=== PATIENT | male | born 1965 | race Caucasian/White ===

== ENCOUNTER 2022-01-09 10:52 | Emergency (ER) | payer OTHER ==
--- OUTSIDE RECORDS SUMMARY | 2022-01-09 10:54 | XMS REPORT | Continuity of Care Document ---
:1965 Author Organization [facility] t Address [address] [place] [address] Care Team Providers Name Role Phone ACRES Attending Clinician Unavailable MD LEWIS PEREZ Attending Clinician Unavailable ACRES Admitting Clinician Unavailable MD LEWIS PEREZ Admitting Clinician Unavailable Problems This patient has no known problems. Allergies, Adverse Reactions, Alerts This patient has no known allergies or adverse reactions. Medications This patient has no known medications. Immunizations Ordered Immunization Filled Immunization Date Status Commen ts Source Name Name Pfizer COVID-19 Vaccine Pfizer COVID-19 2021-10-08 Completed Vaccine 00:00:00 Pfizer COVID-19 Vaccine Pfizer COVID-19 2021-02-22 Completed Vaccine 00:00:00 Procedures This patient has no known procedures. Encounters Start End Encounter Admission Attending Care Care Encounter Source Date/Time Date/Time Type Type Clinicians Facility Department ID 2021-10-08 2021-10-08 Outpatient [facility] [id number] [facility] 00:00:00 00:00:00 V 2021-02-22 2021-02-22 Outpatient [facility] [id number] [facility] 00:00:00 00:00:00 V 2020-09-20 2020-09-21 Outpatient DAPHNEY PEREZ [facility] [id number] [place] 00:00:00 00:00:[address] 2019-12-30 2019-12-31 Inpatient DAPHNEY PEREZ [facility] [id number] [place] 00:00:00 00:00:[address] Results Test Description Test Time Test Comments Results Result Comments Source SARS-CoV-2 (COVID-19) RNA [Presence] in Respiratory sp ecimen by 2020-09-21 15:41:06 JOSUE with probe detection Test Item Value Reference Range Interpretation Comme nts SARS-CoV-2 (COVID-19) RNA [Presence] in Respiratory Not detected No t-Detected specimen by JOSUE with probe detection (test code = 06259-6)
[2022-01-09] MEDS ORDERED: HYDROCODONE/APAP 10/325 TAB ONE (11:59)
[2022-01-09] MEDS ORDERED: ONDANSETRON 4 MG (ODT) TAB ONE (11:59)
[2022-01-09] MEDS ORDERED: LIDOCAINE 4% PATCH ONE (12:50)
[2022-01-09] MEDS ORDERED: KETOROLAC 30 MG/ML INJ ONE (12:50)
--- NOTE | 2022-01-09 13:31 | EDPHYS ---
Physician Documentation [facility] Name: Abelino Chance Age: 56 yrs Sex: Male : 1965 Arrival Date: 01/09/2022 Time: 10:57 Bed 10 Private MD: CHARISSA Physician Claudio Chirinos HPI: 01/09 11:58 This 56 yrs old Male presents to ER via Ambulatory with complaints of Neck Pain. pm1 11:58 The patient or guardian complains of pain, that is acute. The symptoms are located on pm1 the left side of neck. Onset: The symptoms/episode began/occurred today. Context: The problem was sustained at home, The neck injury/problem resulted from Possibly from old pillow with side-lying sleeping position. Associated signs and symptoms: The patient has no apparent associated signs or symptoms. The pain does not radiate. Modifying factors: The symptoms are alleviated by nothing. the symptoms are aggravated by movement. Severity of symptoms: in the emergency department the symptoms are actually worse. The patient has experienced similar episodes in the past, a few times. The patient has not recently seen a physician. Historical: - Allergies: 11:09 Quinidine-Quinine Analogues; ab2 11:09 Digoxin; ab2 - PMHx: 11:09 Cervical Stenosis; ab2 - PSHx: 11:09 Cardiac Stents; ab2 - Immunization history:: Adult Immunizations up to date, Client reports receiving the 2nd dose of the Covid vaccine. - Social history:: Smoking status: Patient reports the use of cigarette tobacco products, Patient denies any tobacco usage or history of. Patient uses street drugs, marijuana. ROS: 11:58 Constitutional: Negative for fever, chills, and weight loss. pm1 11:58 Cardiovascular: Negative for chest pain, palpitations, and edema, Respiratory: Negative for shortness of breath, cough, wheezing, and pleuritic chest pain, Back: Negative for injury and pain, MS/Extremity: Negative for injury and deformity, Skin: Negative for injury, rash, and discoloration, Neuro: Negative for headache, weakness, numbness, tingling, and seizure. 11:58 Neck: Positive for pain with movement, of the left side of neck. 11:58 All other systems are negative. Exam: 11:58 Constitutional: This is a well developed, well nourished patient who is awake, alert, pm1 and in no acute distress. Head/Face: Normocephalic, atraumatic. 11:58 Back: No spinal tenderness. No costovertebral tenderness. Full range of motion. Skin: Warm, dry with normal turgor. Normal color with no rashes, no lesions, and no evidence of cellulitis. MS/ Extremity: Pulses equal, no cyanosis. Neurovascular intact. Full, normal range of motion. 11:58 Eyes: Exam is negative for acute changes, Periorbital structures: appear normal, no acute changes, Pupils: no acute changes, Extraocular movements: no acute changes. 11:58 ENT: Exam is negative for acute changes, Mouth: no acute changes, Lips: normal, moist, Oral mucosa: normal, pink and intact, moist. 11:58 Neck: External neck: tenderness, that is moderate, of the left trapezius, C-spine: vertebral tenderness, is not appreciated. 11:58 Cardiovascular: Exam negative for acute changes, Rate: normal, Rhythm: regular, Pulses: no pulse deficits are appreciated. 11:58 Respiratory: Exam negative for acute changes, respiratory distress, shortness of breath. 11:58 Neuro: Exam negative for acute changes, Orientation: is normal, Mentation: is normal, Motor: is normal, moves all fours. Vital Signs: 11:07 BP 128 / 86; Pulse 67; Resp 18; Temp 98.0(O); Pulse Ox 98% on R/A; Weight 127.01 kg; ab2 Height 6 ft. 4 in. (193.04 cm); Pain 7/10; 13:17 BP 121 / 77; Pulse 64; Resp 18; Pulse Ox 99% on R/A; ab2 13:44 BP 118 / 49; Pulse 58; Resp 18; ww 11:07 Body Mass Index 34.08 (127.01 kg, 193.04 cm) ab2 MDM: 11:24 Patient medically screened. [facility] 13:29 Data reviewed: vital signs. Data interpreted: Pulse oximetry: on room air is 99 %. pm1 Interpretation: normal. Counseling: I had a detailed discussion with the patient and/or guardian regarding: the historical points, exam findings, and any diagnostic results supporting the discharge/admit diagnosis, the need for outpatient follow up, to return to the emergency department if symptoms worsen or persist or if there are any questions or concerns that arise at home. Administered Medications: 11:58 Drug: [place] (HYDROcodone-acetaminophen) 10 mg-325 mg 1 tabs Route: PO; ab2 13:16 Follow up: Response: No adverse reaction; Pain is decreased ab2 11:58 Drug: Ondansetron 4 mg Route: PO; ab2 13:16 Follow up: Response: No adverse reaction ab2 12:51 Drug: Ketorolac 60 mg Route: IM; Site: left ventrogluteal; ab2 13:16 Follow up: Response: No adverse reaction; Pain is decreased ab2 12:51 Drug: Lidoderm Patch 5 % (700 mg/patch) 1 patches Route: Topical; Site: affected area; ab2 13:16 Follow up: Response: No adverse reaction; Pain is decreased ab2 Disposition: 18:30 Co-signature as Attending Physician, Claudio Chirinos MD I agree with the assessment and [place] plan of care. Disposition Summary: 01/09/22 13:30 Discharge Ordered Location: Home pm1 Problem: new pm1 Symptoms: have improved pm1 Condition: Stable pm1 Diagnosis - Strain of muscle, fascia and tendon at neck level pm1 Followup: pm1 - With: Emergency Department - When: As needed - Reason: Worsening of condition Followup: pm1 - With: Private Physician - When: 2 - 3 days - Reason: Recheck today's complaints, Continuance of care, Re-evaluation by your physician Discharge Instructions: - Discharge Summary Sheet pm1 - Muscle Strain pm1 Forms: - Medication Reconciliation Form pm1 - Thank You Letter pm1 - Antibiotic Education pm1 - Prescription Opioid Use pm1 Prescriptions: - Lidoderm 5 % Topical adhesive patch,medicated - apply 1 patch by TRANSDERMAL route once daily As needed 12 hours on and 12 pm1 hours off in a 24 hour period; 10 patch; Refills: 0, Product Selection Permitted - Cyclobenzaprine 10 mg Oral Tablet - take 1 tablet by ORAL route every 8 hours As needed; 30 tablet; Refills: 0, pm1 Product Selection Permitted - Tylenol-Codeine #3 300 mg-30 mg Oral - take 2 tablet by ORAL route every 4-6 hours As needed; 20 tablet; Refills: 0, pm1 Product Selection Permitted Signatures: Claudio Chirinos MD MD cha Marinas, Patrick, NP LABORER OPERATOR pm1 Bleininger, Asher ab2
--- NOTE | 2022-01-09 13:31 | ER ---
Nurse's Notes [facility] Name: Abelino Chance Age: 56 yrs Sex: Male : 1965 Arrival Date: 01/09/2022 Time: 10:57 Bed 10 Private MD: Diagnosis: Strain of muscle, fascia and tendon at neck level Presentation: 01/09 11:07 Chief complaint: Patient states: "I have this horrible pain on the left side of my ab2 neck. Last chris this happened they gave me Toradol and it helped greatly." Pt denies any injury or trauma to area. Coronavirus screen: Vaccine status: Patient reports receiving the 2nd dose of the covid vaccine. Client denies travel out of the [place] in the last 14 days. At this time, the client does not indicate any symptoms associated with coronavirus-19. Ebola Screen: Patient negative for fever greater than or equal to 101.5 degrees Fahrenheit, and additional compatible Ebola Virus Disease symptoms Patient denies exposure to infectious person. Patient denies travel to an Ebola-affected area in the 21 days before illness onset. No symptoms or risks identified at this time. Initial Sepsis Screen: Does the patient meet any 2 criteria? No. Patient's initial sepsis screen is negative. Does the patient have a suspected source of infection? No. Patient's initial sepsis screen is negative. Risk Assessment: Do you want to hurt yourself or someone else? Patient reports no desire to harm self or others. Onset of symptoms is unknown. 11:07 Method Of Arrival: Ambulatory ab2 11:07 Acuity: SAPNA 4 ab2 Triage Assessment: 11:11 General: Appears. ab2 Historical: - Allergies: 11:09 Quinidine-Quinine Analogues; ab2 11:09 Digoxin; ab2 - PMHx: 11:09 Cervical Stenosis; ab2 - PSHx: 11:09 Cardiac Stents; ab2 - Immunization history:: Adult Immunizations up to date, Client reports receiving the 2nd dose of the Covid vaccine. - Social history:: Smoking status: Patient reports the use of cigarette tobacco products, Patient denies any tobacco usage or history of. Patient uses street drugs, marijuana. Screenin:11 Abuse screen: Denies threats or abuse. Denies injuries from another. Nutritional ab2 screening: No deficits noted. Tuberculosis screening: No symptoms or risk factors identified. Fall Risk None identified. Assessment: 11:11 General: Appears in no apparent distress. uncomfortable, Behavior is calm, cooperative, ab2 appropriate for age. Pain: Complains of pain in left side of neck Pain does not radiate. Pain currently is 7 out of 10 on a pain scale. Quality of pain is described as aching, sharp. Neuro: Level of Consciousness is awake, alert, obeys commands, Oriented to person, place, time, situation, Appropriate for age Bulk Plant Agent are equal bilaterally Moves all extremities. Gait is steady, Speech is normal, Facial symmetry appears normal. Cardiovascular: No deficits noted. Denies chest pain, shortness of breath, Heart tones S1 S2 present Patient's skin is warm and dry. Respiratory: No deficits noted. Airway is patent Respiratory effort is even, unlabored, Respiratory pattern is regular, symmetrical. GI: No deficits noted. No signs and/or symptoms were reported involving the gastrointestinal system. Abdomen is round non-distended, Bowel sounds present X 4 quads. Abd is soft and non tender. : No deficits noted. No signs and/or symptoms were reported regarding the genitourinary system. EENT: No deficits noted. No signs and/or symptoms were reported regarding the EENT system. Derm: No deficits noted. No signs and/or symptoms reported regarding the dermatologic system. Skin is intact, is healthy with good turgor, Skin is pink, warm \\T\\ dry. Musculoskeletal: Reports pain in left side of neck. 13:17 Reassessment: Patient appears in no apparent distress at this time. Pt states he feels ab2 better with the pain medication. Pt ready for discharge. Vital Signs: 11:07 BP 128 / 86; Pulse 67; Resp 18; Temp 98.0(O); Pulse Ox 98% on R/A; Weight 127.01 kg; ab2 Height 6 ft. 4 in. (193.04 cm); Pain 7/10; 13:17 BP 121 / 77; Pulse 64; Resp 18; Pulse Ox 99% on R/A; ab2 13:44 BP 118 / 49; Pulse 58; Resp 18; ww 11:07 Body Mass Index 34.08 (127.01 kg, 193.04 cm) ab2 ED Course: 10:57 Patient arrived in ED. ds1 11:07 Asher Johnson is Primary Nurse. ab2 11:09 Triage completed. ab2 11:11 Terry Baldwin NP is PHCP. pm1 11:11 Claudio Chirinos MD is Attending Physician. pm1 11:13 Arm band placed on right wrist. ab2 11:13 Patient has correct armband on for positive identification. Bed in low position. Call ab2 light in reach. Side rails up X2. 11:13 No provider procedures requiring assistance completed. ab2 13:44 Patient did not have IV access during this emergency room visit. ww Administered Medications: 11:58 Drug: [place] (HYDROcodone-acetaminophen) 10 mg-325 mg 1 tabs Route: PO; ab2 13:16 Follow up: Response: No adverse reaction; Pain is decreased ab2 11:58 Drug: Ondansetron 4 mg Route: PO; ab2 13:16 Follow up: Response: No adverse reaction ab2 12:51 Drug: Ketorolac 60 mg Route: IM; Site: left ventrogluteal; ab2 13:16 Follow up: Response: No adverse reaction; Pain is decreased ab2 12:51 Drug: Lidoderm Patch 5 % (700 mg/patch) 1 patches Route: Topical; Site: affected area; ab2 13:16 Follow up: Response: No adverse reaction; Pain is decreased ab2 Outcome: 13:30 Discharge ordered by . pm1 13:44 Discharged to home ambulatory. ww 13:44 Condition: stable 13:44 Discharge instructions given to patient, Instructed on discharge instructions, follow up and referral plans. no drinking with medication, medication usage, safety practices, Demonstrated understanding of instructions, follow-up care, medications, Prescriptions given X 3. 13:45 Patient left the ED. ww Signatures: Thalia Olivarez ds1 Terry Baldwin NP FREIGHT ADJUSTER pm1 Mckenzie Collins RN RN ww Asher Johnson ab2
[2022-01-09 13:51] VITALS: TEMP 98
[2022-01-09 13:52] VITALS: O2SAT 99
[2022-01-09 13:53] VITALS: BP 118/49
== END 2022-01-09 13:45 | disposition home or self-care (01) ==
LOC: ER 10:52
DX: S16.1XXA Strain of muscle, fascia and tendon at neck level, initial encounter (principal); Z72.0 Tobacco use; Z88.8 Allergy status to other drugs, medicaments and biological substances; Z95.818 Presence of other cardiac implants and grafts
CPT/HCPCS: 96372; 99283